=== PATIENT | female | born 1990 | race Hispanic/Latino ===

== ENCOUNTER 2025-10-07 12:33 | Emergency (ER) | payer BC, OTHER ==
[2025-10-07 14:24] LABS: Hematocrit 27.6 % (34.9-44.5); Hemoglobin 8.4 g/dL (12.0-15.5); Mean Corpuscular Hemoglobin 22.3 pg (27.0-33.0); Mean Corpuscular Volume 73.4 fL (81.6-98.3); Platelet Count 358 10x3/uL (150-450); Red Blood Cell (RBC) Count 3.76 10x6/uL (3.90-5.03); White Blood Cell (WBC) Count 6.60 10x3/uL (3.5-10.5)
[2025-10-07 14:33] LABS: ALT (SGPT) 35 U/L (Less than 34); AST (SGOT) 42 U/L (11-34); Albumin 2.7 g/dL (3.1-4.5); Alkaline Phosphatase 112 U/L (40-110); Anion Gap 14 mmol/L (10-20); BUN (Urea Nitrogen) 14 mg/dL (7.0-18.7); Bilirubin, Total 0.4 mg/dL (0.3-1.2); Calc. Creatinine Clearance 0 mL/min (70-130); Calcium 8.6 mg/dL (7.8-10.44); Carbon Dioxide 22 mmol/L (22-29); Chloride 108 mmol/L (98-107); Globulin 3.4 g/dL (2.4-3.5); Glucose 78 mg/dL (70-105); Potassium 4.0 mmol/L (3.5-5.1); Sodium 140 mmol/L (136-145)
[2025-10-07 14:59] LABS: #Basophils Less than 0.03 10x3/uL (0.0-0.2); #Eosinophils 0.22 10x3/uL (0.0-0.5); #Monocytes 0.29 10x3/uL (0.0-1.1); #Neutrophils 4.92 10x3/uL (1.5-8.4); %Basophils 0.3 % (0.0-2.0); %Eosinophils 3.3 % (0.0-6.0); %Lymphocytes 16.7 % (18.0-47.0); %Monocytes 4.4 % (0.0-10.0); %Neutrophils 74.5 % (40.0-75.0); MDiff Complete? YES; Microcytosis SLIGHT = 6-15 cells (100X) (0-5/hpf)
[2025-10-07 16:02] LABS: Glucose, Urine (Dipstick) Normal (Negative); Protein, Urine (Dipstick) 500 mg/dl (Neg-Trace); Specific Gravity, Urine 1.015 (1.005-1.030)
[2025-10-07 16:06] LABS: Leukocyte Unable to Interpret (Negative)
[2025-10-07 16:08] LABS: RBC/HPF Greater than 50 HPF (0-3)
[2025-10-07 16:09] LABS: CAUTI Indications for Culture Pelvic or flank pain; WBC/HPF 21-50 HPF (0-3)
[2025-10-07 16:11] LABS: Bacteria/HPF 2+ HPF (None Seen)
[2025-10-07 16:12] LABS: Mucous/LPF Rare LPF (<2+)
[2025-10-07 16:13] LABS: Urine Culture Reflex Yes Yes
== END 2025-10-07 17:08 | disposition home or self-care (01) ==
LOC: CSHERS 12:33
DX: R60.0 Localized edema (principal); N39.0 Urinary tract infection, site not specified
CPT/HCPCS: 36415; 80053; 81001; 85025; 87086; 99283